=== PATIENT | female | born 1945 | race Caucasian/White ===

== ENCOUNTER 2018-10-26 00:30 | Emergency (ER) | payer MEDICARE, OTHER ==
[~2018-10-26] VITALS: Ht 152.4 cm; Wt 54.4 kg
--- NOTE | 2018-10-26 00:50 | NUR ---
URINE SPECIMEN COLLECTED FROM PT. NOTED HEMATURIA. SHOWED TO
--- NOTE | 2018-10-26 00:53 | NUR ---
BIBSELF FROM HOME WITH . TO ER BED 12. AAOX4. NO RESP DISTRESS, BREATHING EVEN AND UNLABORED. C/O PAIN UPON URINATION SINCE 7PM. DESCRIBES PAIN SHARP BURNING PAIN. 01/17. NOTED HEMATURIA W/ URINE COLLECTED FROM PT AWARE. AWAITING ORDERS
[2018-10-26 00:54] LABS: APPEARANCE,URINE Cloudy (CLEAR); BILIRUBIN,URINE SMALL (NEGATIVE); BLOOD, URINE Large Ery/uL (NEGATIVE); COLOR,URINE Red (YELLOW); KETONES,URINE Negative (NEGATIVE); LEUKOCYTE ESTERASE ,URINE Small (NEGATIVE); NITRITE, URINE Positive (NEGATIVE); PH,URINE 7.5 (5.0-8.0); PROTEIN,URINE 100 mg/dl (NEGATIVE); UGLUCOSE Negative (NEGATIVE); UROBILINOGEN,URINE 0.2 EU/dL (0.2)
[2018-10-26] MEDS ORDERED: PHENAZOPYRIDINE HCL 200 MG TABLET ONE (00:56)
--- NOTE | 2018-10-26 01:26 | NUR ---
PT WENT TO BATHROOM. URINE NOTED WITH BLOOD CLOTS. MADE AWARE.
[2018-10-26] MEDS ORDERED: PHENAZOPYRIDINE HCL 200 MG TABLET PO ONE (01:30)
[2018-10-26 01:52] LABS: RBC,URINE TOO NUMEROUS TO COUN /HPF (0-2)
[2018-10-26 01:53] LABS: BACTERIA,URINE Few /HPF (None Seen); SQUAMOUS EPITHELIAL CELL,UR Rare /HPF (None Seen)
[2018-10-26] MEDS ORDERED: NITROFURANTOIN/NITROFURAN MAC 100 MG CAPSULE PO ONE (02:00)
[2018-10-26] MEDS ORDERED: NITROFURANTOIN/NITROFURAN MAC 100 MG CAPSULE ONE (02:00)
[2018-10-26 02:07] VITALS: BP 150/77
== END 2018-10-26 02:10 | disposition home or self-care (01) ==
LOC: ER 00:33
DX: N39.0 Urinary tract infection, site not specified (principal); F41.9 Anxiety disorder, unspecified
CPT/HCPCS: 81000-TC; 87086-TC; 87186-TC